=== PATIENT | male | born 1970 | race Caucasian/White ===

== ENCOUNTER 2025-03-17 11:05 | Outpatient (CLI) | payer OTHER, SELFPAY ==
--- NOTE | 2025-03-17 11:18 | ECG_ITS ---
Test Date: 2025-03-17 11:40:29 Measurements Intervals [place] Rate: 74 P: 61 UT: 160 QRS: -34 QRSD: 100 T: 44 QT: 366 QTc: 408 Interpretive Statements SINUS RHYTHM LEFT AXIS DEVIATION BORDERLINE ECG No previous ECG available for comparison Electronically Signed On 03-17-2025 11:43:04 BUSINESS ECONOMIST by Jorge Luis Amato D.O.
[2025-03-17 12:10] LABS: Anion Gap 9 mmol/L (4-12); Blood Urea Nitrogen 16 mg/dL (9-20); Carbon Dioxide 24 mmol/L (22-30); Chloride 100 mmol/L (98-107); Estimated Glomerular Filt Rate > 60; Potassium 4.0 mmol/L (3.4-5.0); Sodium 133 mmol/L (137-145)
[2025-03-17 12:11] LABS: Calcium 8.6 mg/dL (8.4-10.2); Glucose 276 mg/dL (65-110)
== END 2025-03-17 11:06 | disposition home or self-care (01) ==
PROVIDERS: Visit Provider Anesthesiology
DX: Z01.818 Encounter for other preprocedural examination (principal); I10 Essential (primary) hypertension; E78.5 Hyperlipidemia, unspecified; E11.9 Type 2 diabetes mellitus without complications; Z87.891 Personal history of nicotine dependence
CPT/HCPCS: 36415; 80048; 93005

== ENCOUNTER 2025-03-27 07:59 | Day surgery (SDC) | payer OTHER, SELFPAY ==
[2025-02-20 15:07] VITALS: BMI 35.6
[2025-03-13 12:39] VITALS: BMI 34.2
--- NOTE | 2025-03-27 06:59 | P.OP_ITS ---
Procedure Note - Detailed Date of Procedure 03/27/25 Pre-op Diagnosis Digital Mucous Cyst of left middle finger Post-op Diagnosis Same Procedure Performed left middle finger mucous cyst excision and local tissue transfer Surgeon Joelle Barillas MD Computer Aided Design Operator mal wolf pa-c Anesthesia MAC Description of Procedure INFORMED CONSENT: The patient was seen and examined and marked in the pre-op area.? The patient signed the consent form. PROCEDURE IN DETAIL:The patient taken back to OR on the stretcher in supine position. Time out performed with anesthesia, surgeon and staff agreeing on patient's name site and surgery to be performed SCDs were placed on the lower extremities and inflated. A tourniquet was placed on {left} upper extremity and antibiotics given IV After anesthesia administered sedation I injected {3}cc 1%lido and 0.5% marcaine plain for digital block in the palm The?{left upper extremity}?was prepped and draped in sterile fashion the??{left upper extremity} was? exsanguinated with Esmarch bandage and tourniquet inflated to 250mmHg I proceeded with making a wedge excision of the affected tissue at the proximal nail fold of the left middle finger through skin and dermis with 15 blade scalpel extending this incision proximally to the D IP joint. I elevated skin flaps with 15 blade scalpel. I proceeded with circumferential dissection around the cystic appearing mass excising it back to where it seemed to originate at distal insertion of extensor tendon. I irrigated with normal saline. No appreciable osteophyte was noted. I was unable to close the proximal nail fold defect primarily even with this wide undermining so I extended my incision pr oximally to create a rotation advancement flap. This was elevated above extensor tendon and I was now able to rotate this into position and reconstruct the proximal nail fold with minimal tension. This was closed with 5 0 and 4-0 chromic suture. A dressing of xeroform, 4x4, nadia, and tube gauze was applied after the tourniquet was let down noting the hand was warm and well perfused. The patient was then awaken from anesthesia and transferred to the recovery room in stable condition.? Complications - none EBL- 0cc Disposition - home in stable condition Mal Wolf PA-C was essential for positioning, retraction, closure and dressing placement. [facility] Billing Surgery - Charge Forward: Surgery Billing ([phone] same for mal adding )
--- NOTE | 2025-03-27 06:59 | WPDHPUPDATE1 ---
History and Physical Update Update Date/Time: 03/27/25 06:59 Patient seen and examined in pre-operative holding area. No interval change in medical history or symptoms. Patient recalls previous discussion of benefits and alternatives to procedure. Continues to desire to proceed with left middle finger mucous cyst excision . Reviewed procedure, post-op expectations and risks including but not limited to bleeding, infection, injury to tendon/nerve/vessel, decreased hand function, stiffness, RSD, no change or worsening of symptoms, recurrence. I discussed the possible use of assistants and their participation in the case. Patient stated understanding and signed the consent form wishing to proceed.
--- OUTSIDE RECORDS SUMMARY | 2025-03-27 08:41 | XMS_ITS | Clinical Summary ---
Author Organization [facility] Address [address] [place] [id number] Care Team Providers Care Kosher Dietary Service Supervisor Name Role Phone Provider, Unknown Primary Care Provider Unavaila Harjeet Bay DO Unavailable [phone] Leo Biggs MD Unavailable [phone] Allergies Active Allergy Reactions Criticality Noted Date Comments Lactose Other (see Comments) High 08/14/2020 Medications atorvastatin (LIPITOR) 20 MG Tablet 3 Active HumaLOG 100 UNIT/ML Solution 3 Active ondansetron (ZOFRAN) 4 MG Tablet TAKE 1 TABLET BY MOUTH EVERY 8 HOURS NEEDED FOR NAUSEA OR VOMITING 3 Active Cholecalcifero l (Vitamin D3) 125 MCG (5000 UT) Capsule Take 125 mcg by mouth. Active Cinnamon 500 MG Tablet Take 5,000 mg by mouth. Active Lantus SoloStar 100 UNIT/ML Solution Pen-injector ADMINISTER 10 UNITS UNDER THE SKIN EVERY DAY AT BEDTIME 3 Active Blood Glucose Monitoring Suppl (Contour Next EZ) w/Device Kit Use as directed 4 Active losartan (COZAAR) 25 MG Tablet take 1 tablet orally daily Active albuterol 108 (90 Base) MCG/ACT Aerosol Solution inhale 2 puffs by mouth every 4 hours as needed for wheezing or shortness of breath Active metFORMIN (GLUCOPHAGE-XR ) 500 MG TABLET SR 24 HR Take by mouth 2 times daily. 4 Active fexofenadine (MARIA FERNANDA) 180 MG Tablet Take 180 mg by mouth. Active omeprazole (PriLOSEC) 20 MG CAPSULE DELAYED RELEASE Take 20 mg by mouth daily. 4 Active Mounjaro 10 MG/0.5ML Solution Auto-injector 10 mg by Subcutaneous route once a week. 5 Active Farxiga 5 MG Tablet Take 5 mg by mouth daily. 5 Active Contour Next Test Strip USE 1 STRIP TO TEST BLOOD SUGAR TWICE DAILY 5 Active dicyclomine (BENTYL) 20 MG Tablet Take 20 mg by mouth. Discontin ued(Med List Clean Up) rifAXIMin (XIFAXAN) 550 MG Tablet Take 550 mg by mouth. Discontin ued(Med List Clean Up) Active Problems No known active problems Encounters Date Type Department Care Team Description 03/25/2025 11:00 AM LIMNOLOGY TEACHER Office Visit [facility] [address] [phone] Sherry Sierra, BODY AND FRAME MAN, MEAT COUNTER WORKER Leukocytosis, unspecified type (Primary Dx) 03/25/2025 10:45 AM LIMNOLOGY TEACHER Lab [facility] [address] [phone] Lab, [facility] [place] Leukocytosis, unspecified type 03/25/2025 Travel from Last 3 Months Social History Tobacco Use Types Packs/Day Years Used Date Smoking Tobacco: Former Cigarettes Smokeless Tobacco: Never Tobacco Cessation:Counseling Given: Not Answered Sex and Gender Information Value Date Recorded Sex Assigned at Not on file Legal Sex Male 12:49 PM LIMNOLOGY TEACHER Gender Identity Not on file Sexual Orientation Not on file Last Filed Vital Signs Vital Sign Reading Time Taken Comments Blood Pressure 138/84 03/25/2025 11:37 AM LIMNOLOGY TEACHER Pulse 80 03/25/2025 11:37 AM LIMNOLOGY TEACHER Temperature 36.7 C (98 F) 03/25/2025 11:37 AM LIMNOLOGY TEACHER Respiratory Rate 16 03/25/2025 11:3 7 AM LIMNOLOGY TEACHER Oxygen Saturation 95% 03/25/2025 11: 37 AM LIMNOLOGY TEACHER Inhaled Oxygen Concentration - - Weight 117.2 kg (258 lb 6.4 oz) 11:37 AM LIMNOLOGY TEACHER Height 182.9 cm (6') 03/25/2025 11:37 AM LIMNOLOGY TEACHER Body Mass Index 35.05 03/25/2025 11:37 AM LIMNOLOGY TEACHER Plan of Treatment Upcoming Encounters Date Type Department Care Team (Late st Contact Info) Description 09/23/2025 11:40 AM CDT Lab [facility] [address] [phone] Lab, [facility] 09/23/2025 11:45 AM CDT Office Visit [facility] [address] [phone] Harjeet Jj, [address] [place] [phone] Health Maintenance Due Date Last Done Comments Hepatitis C Virus (HCV) Screening 1970 Hepatitis B Immunization (2 of 3 - 19+ 3-dose series) 02/07/2013 01/10/2013 Cologuard 02/15/2017 Immunochemical Fecal Occult Blood 02/15/2017 Respiratory Syncytial Virus (RSV) Immunization (Adult) (1 - Risk 50-74 years 1-dose series) 02/15/2022 Pneumococcal Immunization (50+ years) (3 of 3 - PCV20 or PCV21) 05/25/2023 05/25/2018, 03/28/2016 SARS-COV-2 Immunization ( - season) 2024 03/02/2021, 06/22/2020, 06/01/2020 Colonoscopy 06/01/2031 06/01/2021 Colorectal Cancer Screening 06/01/2031 DTaP/Tdap/Td Immunization Discontinued 10/31/2012 TdaP Immunization Completed 10/31/2012 Pneumococcal Immunization Combined Discontinued 05/25/2018, 03/28/2016 Zoster Immunization Completed 01/30/2023, Influenza Immunization Completed , 01/02/2023, 02/22/2022, Additional history exists Human Papillomavirus (HPV) Immunization (No Doses Required) Completed Meningococcal Immunization (ACWY) Aged Out No longer eligible based on patient's age to complete this topic Rotavirus Immunization Aged Out No lo nger eligible based on patient's age to complete this topic Procedures Procedure Name Priority Date/Time Associated Diagnosis Comments CBC WITH AUTO DIFF OH Routine 03/25/2025 11:17 AM LIMNOLOGY TEACHER LACTATE DEHYDROGENASE (LD) Routine 03/25/2025 11:17 AM LIMNOLOGY TEACHER Leukocytosis, unspecified type from Last 3 Months Results * (ABNORMAL) CBC WITH AUTO DIFF OH (03/25/2025 11:17 AM LIMNOLOGY TEACHER) WBC 12.6(H) 4.0 - 10.0 10*3/uL [facility] HGB 16.0 13.7 - 17.5 g/dL [facility] HCT 46.9 40.1 - 51.0 % [facility] PLT 269 163 - 369 10*3/uL [facility] MPV 9.5 9.4 - 12.4 fL [facility] RBC 5.24 4.63 - 6.08 10*6/uL [facility] MCV 90 79 - 95 fL [facility] MCH 30.5 25.6 - 32.2 pg [facility] MCHC 34.1 32.2 - 36.5 g/dL [facility] RDW 12.0 11.6 - 14.4 % [facility] Neutrophils % 59.4 36.0 - 66.0 % [facility] Lymphocytes % 30.1 19.0 - 40.0 % [facility] Monocytes % 7.6 4.1 - 12.1 % [facility] Eosinophils % 2.0 0.0 - 3.5 % [facility] Basophils % 0.6 0.0 - 1.0 % [facility] Absolute Neutrophils 7.5(H) 1.4 - 6.6 10*3/uL [facility] Absolute Lymphocytes 3.8 0.8 - 4.0 10*3/uL [facility] Absolute Monocytes 1.0 0.2 - 1.2 10*3/uL [facility] Absolute Eosinophils 0.3 0.0 - 0.4 10*3/uL [facility] Absolute Basophils 0.1 0.0 - 0.1 10*3/uL [facility] 03/25/2025 11:1 7 AM LIMNOLOGY TEACHER Kate Lou APRN, MAGDALENE LAB SEND OUTS Final Result Performing Organization Address [facility]/State/ZIP Co de Phone Number [facility] [address] [place] [address], [place] [phone] * (ABNORMAL) LACTATE DEHYDROGENASE (LD) (03/25/2025 11:17 AM LIMNOLOGY TEACHER) LDH 113(L) 140 - 271 U/L [facility] Blood 03/25/2025 11:1 7 AM LIMNOLOGY TEACHER Narrative [facility] - 03/25/2025 12:04 PM LIMNOLOGY TEACHER Release to patient->Immediate Kate Lou APRN, MAGDALENE CHEMISTRY ORDERABLES Final Result Performing Organization Address [facility] Co de Phone Number [facility] [address] [place] [address], [place] [phone] from Last 3 Months Insurance [employer] Care Teams Kosher Dietary Service Supervisor Relationship Specialty Start Date End Date Provider, Unknown UNKNOWN PCP - General 03/16/23 Harjeet Jj DO [address] [place] [phone] Consulting Physician Oncology 03/16/23 Leo Biggs MD [address] [address] Internal Medicine 04/19/23
--- OUTSIDE RECORDS SUMMARY | 2025-03-27 08:41 | XMS_ITS | Encounter Summary ---
Author Organization [facility] Address [address] [place] [address] Care Team Providers Care Chain Maker Name Role Phone Ha Moffett MD Primary Care Provider [phone] Encounter Details Date Type Department Care Team (Late st Contact Info) Description 08/09/2019 Telephone [facility] [address] [place] [address] Venu Morocho MD [address] OF PLASTIC SURGERY [place], [place] [phone] Social History Tobacco Use Types Packs/Day Years Used Date Smoking Tobacco: Former Smokeless Tobacco: Never Alcohol Use Standard Drinks/Week Comments Yes 0 (1 standard drink = 0.6 oz pur e alcohol) Sex and Gender Information Value Date Recorded Sex Assigned at Not on file Legal Sex Male 6:17 PM METHODS SPECIALIST Gender Identity Not on file Sexual Orientation Not on file documented as of this encounter Miscellaneous Notes * Telephone Encounter - Coty Cherry - 08/09/2019 11:43 AM CDT Per [facility] [employer], cpt codes: 95298, 50402, 73491, 98115, and 19315 do not require prior authorization. Call reference# not given. Patient is scheduled for this procedure with Dr. Morocho on 09/16/19.Coty Rivera [phone] documented in this encounter Plan of Treatment Not on file documented as of this encounter Visit Diagnoses Not on filedocumented in this encounter Care Teams Chain Maker Relationship Specialty Start Date End Date Ha Moffett MD PCP - General 11/26/09 documented as of this encounter
--- OUTSIDE RECORDS SUMMARY | 2025-03-27 08:41 | XMS_ITS | Clinical Summary ---
Author Organization [facility] Address [address] [place] [address] Care Team Providers Care Professional Sports Scout Name Role Phone Ha Moffett MD Primary Care Provider [phone] Source Comments [facility],non-owned Affiliates and Associated Physician Practices is amultiple site organization consisting of ambulatory clinics and hospital sitesin [place], [place], [place] and [place]. This disclosure is being madepursuant to the Care Everywhere program and may not contain all information available regarding this patient. Last updated 17.[employer] [facility] Allergies Active Allergy Reactions Criticality Noted Date Comments Lactase Diarrhea,Nausea and/or Vomiting Low 11/08 Lactose Nausea and/or Vomiting High 08/14/2020 Medications * Be aware that medications may not be up to date on this document. Alwaysverify current medications with the patient. atorvastatin (LIPITOR) 20 MG tablet TAKE 1 TABLET BY MOUTH EVERY DAY Active lisinopril (PRINIVIL; ZESTRIL) 10 MG tablet TK 1 T PO D 5 9 Active metFORMIN (GLUCOPHAGE) 500 MG tablet 1,000 mg 2 times daily with morning and evening meal Active Multiple Vitamin (MULTI VITAMIN DAILY PO) 1 tab daily Active omeprazole (PRILOSEC) 20 MG capsule TK 1 C PO QD 5 9 Active [id number]-Omeg a 3-Phytosterols (BP VIT 3) 1 MG CAPS 5000 IU daily Active buPROPion XL 24hr (WELLBUTRIN-XL ) 150 MG tablet Take 1 tablet by mouth once daily 0 Active insulin aspart (NOVOLOG) vial Inject subcutaneously daily before dinner Active gabapentin (NEURONTIN) 300 MG capsule Take 1 capsule by mouth 3 times daily 50 capsule 4 0 Active Additional Information Patient not taking.Reported on 12/17/2019 ibuprofen (MOTRIN) 600 MG tablet Take 1 tablet by mouth 3 times daily 50 tablet 4 0 Active diclofenac sodium (VOLTAREN) 1 % gel Apply 2 g to affected area 4 times daily 2 gm amount for elbow, wrist or hand 4 gm amount for knee, ankle or foot 150 g 1 0 Active Dulaglutide (TRULICITY SC) Activ e oxyCODONE-acet aminophen (PERCOCET) 5-325 MG tablet Take 2 tablets by mouth every 4 hours as needed 30 tablet 0 Active Active Problems Problem Noted Date Diagnosed Date Pain from implanted hardware 03/18/2020 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 03/18/2020 TFCC (triangular fibrocartil age complex) injury, left, sequela 01/17/2020 Ulnar impaction syndrome, left 01/10/2020 Sprain and strain of left wrist 12/21/2018 Left wrist pain 12/21/2018 Left tennis elbow 11/02/2018 Swelling of wrist joint, left 11/02/2018 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 Post-op pain Immunizations Immunization Administration Dates Next Due INFLUENZA VACCINE 03/24/2019 Family History Medical History Relation Name Comments None Known Mother Relation Name Status Comments Father Alive Cancer around T onsils Mother Alive Social History Tobacco Use Types Packs/Day Years Used Date Smoking Tobacco: Former Smokeless Tobacco: Never Tobacco Cessation:Counseling Given: No Alcohol Use Standard Drinks/Week Comments Yes 1 (1 standard drink = 0.6 oz pur e alcohol) Very Rare. AUDIT-C Answer Date Recorded Q1: How often do you have a drink containing alc ohol? Monthly or less 01/10/2020 Average Number of Drinks Not on file 020 Frequency of Binge Drinking Not on file 05/2019 Sex and Gender Information Value Date Recorded Sex Assigned at Not on file Legal Sex Male 6:17 PM STEP DOWN NURSE Gender Identity Not on file Sexual Orientation Not on file Last Filed Vital Signs Vital Sign Reading Time Taken Comments Blood Pressure 155/94 03/19/2020 5:57 PM STEP DOWN NURSE Pulse 88 03/19/2020 5:57 PM STEP DOWN NURSE Temperature 36.5 C (97.7 F) 03/19/2020 5:57 PM STEP DOWN NURSE Respiratory Rate 20 03/19/2020 5:57 PM STEP DOWN NURSE Oxygen Saturation 98% 03/19/2020 5:57 PM STEP DOWN NURSE Inhaled Oxygen Concentration - - Weight 117 kg (258 lb) 09/25/2020 12:52 PM CDT Height 182.9 cm (6') 06/12/2020 11:05 AM STEP DOWN NURSE Body Mass Index 34.99 06/12/2020 11:05 AM STEP DOWN NURSE Plan of Treatment Health Maintenance Due Date Last Done Comments COLOGUARD (AGES 45-75) - COLON CA SCREENING 1970 COLON MONITORING 1970 COLONOSCOPY - COLON CA SCREENING 1972 CT COLONOGRAPHY - COLON CA SCREENING 1970 Colorectal Cancer Screening 1970 FIT - COLON CA SCREENING 1970 FLEX SIG - COLON CA SCREENING 1970 HIV SCREENING 02/15/1987 HEPATITIS C SCREENING 02/11/1990 DTAP/TDAP/TD VACCINES (1 - Tdap) 02/15/1991 HEPATITIS B VACCINE (1 of 3 - 19+ 3-dose series) 02/15/1991 PNEUMOCOCCAL VACCINE 50+ (1 of 1 - PCV) 02/15/2022 ZOSTER VACCINE (1 of 2) 02/15/2022 SCREENING FOR DIABETES 03/18/2023 0, 03/18/2020, 03/16/2020, Additional history exists DEPRESSION SCREENING 04/10/2024 COVID-19 VACCINE (1 - season) 2024 INFLUENZA VACCINE (#1) 2024 9, 01/14/2017, 03/28/2016, Additional history exists HIB VACCINE Aged Out No longer eligi ble based on patient's age to complete this topic HPV VACCINE Aged Out No longer eligi ble based on patient's age to complete this topic MENINGOCOCCAL (Group B) VACCINE SHARED DECISION-MAKING Aged Out No longer eligible based on patient's age to complete this topic MENINGOCOCCAL GROUPS A/C/Y/W VACCINE Aged Out No longer eligible based on patient's age to complete this topic Goals Goal Patient Goal Type Associated Problems Recent Progress Patient-Stated? Author Mobility General Improving(09/08 12:53 PM CDT) No Chery Snyder RN Note: Expected end date: 04/09/2020 The goal is to maintain or improve your mobility at the optimum level for you. Interventions: Medical Devices Implanted Type Area Hvac Lead Device Identifier Shelf Expiration Date Model / Serial / Lot [place] Sut Pushlock 2.5mm Peek 8mm Mini Implanted:Qty: 1 on 09/16/2019 by Venu Morocho MD at [facility] [employer] 07/08/2024 [id number] / / [id number] Washer Implanted:Qty: 1 on 03/18/2020 by Zbigniew Grover MD at [facility] Left: Arm Acumed [id number] / / Screw Partially Threaded Cannulated Implanted:Qty: 1 on 03/18/2020 by Zbigniew Grover MD at [facility] Left: Arm [id number] / / Screw 4-4.1mm 34mm Std Ft Slf Cut Palma Implanted:Qty: 1 on 03/18/2020 by Zbigniew Grover MD at [facility] Left: Arm Acumed 06/09/2026 [id number] / / [id number] Explanted Type Area Hvac Lead Device Identifier Shelf Expiration Date Model / Serial / Lot Partially Threaded Cannulated Screw Explanted:Qty: 1 on 03/18/2020 at [facility] Left: Arm [id number] / / Procedures Procedure Name Priority Date/Time Associated Diagnosis Comments GLUCOSE - POINT OF CARE Routine 03/18/2020 10:58 AM STEP DOWN NURSE from Last 3 Months or Most Recently Relevant to Health Maintenance Results * (ABNORMAL) GLUCOSE - POINT OF CARE (03/18/2020 10:58 AM STEP DOWN NURSE) Glucose WB/POC 119(H) 70 - 115 mg/dL 03/18/2020 12:56 PM STEP DOWN NURSE [facility] Specimen Type Venous 03/18/2020 12:56 PM STEP DOWN NURSE [facility] Blood BLOOD SPECIMEN / Unknown 03/18/2020 10:58 AM STEP DOWN NURSE 03/18/2020 12:56 PM STEP DOWN NURSE Zbigniew Grover MD LAB - POINT OF CARE ORDERABLES F inal Result [facility] [address] [place] [address], [facility] [phone] from Last 3 Months or Most Recently Relevant to Health Maintenance Insurance ANTHEM ANTHEM Care Teams Professional Sports Scout Relationship Specialty Start Date End Date Ha Moffett MD PCP - General 11/26/09
--- OUTSIDE RECORDS SUMMARY | 2025-03-27 08:41 | XMS_ITS | Clinical Summary ---
Author Organization [facility] Main [facility] s Address [address] [place] [address] Care Team Providers Care Hall Tender Name Role Phone Trini Dickey Primary Care Provider Allergies Active Allergy Reactions Criticality Noted Date Comments Lactose Diarrhea Low 02/13/2024 Medications tirzepatide (Mounjaro) 5 mg/0.5 mL pen injector Inject 5 mg under the skin every 7 days Active insulin lispro (HUMALOG KWIKPEN INSULIN SUBQ) Inject under the skin Active insulin glargine 100 unit/mL vial for injection Inject 30 Units under the skin daily as needed Active metFORMIN (FORTAMET) 500 mg 24 hr tablet Take 1 tablet (500 mg total) by mouth daily with breakfast Active ondansetron (ZOFRAN) 4 mg tablet Take 1 tablet (4 mg total) by mouth every 8 (eight) hours as needed 3 Active losartan (COZAAR) 25 mg tablet Take 1 tablet (25 mg total) by mouth daily 4 Active traMADoL (ULTRAM) 50 mg tablet Take 1 tablet (50 mg total) by mouth every 6 (six) hours as needed 3 Active omeprazole 20 mg tablet,delayed release (DR/EC) Take by mouth Active fexofenadine (MARIA FERNANDA) 180 mg tablet Take 1 tablet (180 mg total) by mouth daily Active naproxen-diphen hydramine 220-25 mg tablet Take by mouth Active cinnamon bark extract 500 mg tablet Take 5,000 mg by mouth Active multivitamin tablet Take 1 tablet by mouth daily Active albuterol HFA (Ventolin HFA) 90 mcg/actuation inhaler Inhale 2 puffs every 4 (four) hours as needed for wheezing or shortness of breath 18 g 5 Active Active Problems Problem Noted Date Diagnosed Date Cigarette nicotine dependence in remission 10/30 Psychophysiological insomnia 10/30/2024 BMI 34.0-34.9,adult 10/30/2024 BEE (obstructive sleep apnea) 10/30/2024 Snoring 10/30/2024 Delayed sleep phase syndrome 10/30/2024 SOB (shortness of breath) 03/26/2024 Leucocytosis 10/23/2017 Encounters Date Type Department Care Team Description 03/13/2025 Telephone [facility] [address] [place] [address] Ally Altamirano, [facility] 03/11/2025 7:59 PM CHEMICAL MANAGER - 03/11/2025 11:59 PM CHEMICAL MANAGER Hospital Encounter [facility] [address] [place] [address] BEE (obstructive sleep apnea) Discharge Disposition: Discharge to home or self care 02/04/2025 Telephone [facility] Pulmonary [address] [address] Ashutosh Roland MD from Last 3 Months Medical History Medical History Date Comments Diabetes mellitus Social History Tobacco Use Types Packs/Day Years Used Date Smoking Tobacco: Former Cigarettes 0.5 24 S tarted: 02/15/1995 Smokeless Tobacco: Never Tobacco Cessation:Counseling Given: Not Answered Sex and Gender Information Value Date Recorded Sex Assigned at Not on file Legal Sex Male 6:25 AM CHEMICAL MANAGER Gender Identity Not on file Sexual Orientation Not on file Last Filed Vital Signs Vital Sign Reading Time Taken Comments Blood Pressure 128/78 10/30/2024 11:40 AM CDT Pulse 72 10/30/2024 11:40 AM CDT Temperature 36.4 C (97.6 F) 10/30/2024 11:40 AM CDT Respiratory Rate 18 10/30/2024 11:4 0 AM CDT Oxygen Saturation 97% 10/30/2024 11: 40 AM CDT Inhaled Oxygen Concentration - - Weight 115.5 kg (254 lb 11.2 oz) 2024 11:40 AM CDT Height 182.9 cm (6' 0.01) 10/30/2024 1 1:40 AM CDT Body Mass Index 34.54 10/30/2024 11:40 AM CDT Plan of Treatment Health Maintenance Due Date Last Done Comments Colon Cancer Screening-Colonoscopy 1972 Depression Screening 1972 Hepatitis C Screening 1972 Prostate Cancer Screening-PSA 1972 Regular Well Visit/Exam 18-64 02/15/1990 Zoster Vaccine (1 of 2) 02/15/2022 DTaP/Tdap/Td Vaccine (2 - Td or Tdap) 10/31/2022 10/31/2012 Influenza Vaccine (#1) 2024 0, 05/01/2019, 03/24/2019, Additional history exists Hepatitis B Screening Completed 01/10/2013 Pneumococcal vaccine <65 Aged Out 05/25/2018, 03/10 No longer eligible based on patient's age to complete this topic Procedures Procedure Name Priority Date/Time Associated Diagnosis Comments PSG (COMPLEX) Routine 03/12/2025 4:18 PM CHEMICAL MANAGER BEE (obstructive sleep apnea) from Last 3 Months Results * PSG-Sleep Provider Use Only (03/12/2025 4:18 PM CHEMICAL MANAGER) us Farhana Lynn NP SLEEP [facility]ENTER ORDERABLES Fin al Result Performing Organization Address City/State/[facility] Co de Phone Number [facility] SLEEP MEDICINE [address] [place] [address] from Last 3 Months Insurance [employer] SIG [id number] BL CHOICE [place]F [place] Advance Directives For more information, please contact: [phone] Documents on File Type Date Recorded Patient Mushroom Laborer Expl anation ADVANCE DIRECTIVE 03/09/2017 12:00 AM POW ER OF WINDOWS DEPLOYMENT TECHNICIAN FINANCIAL/MEDICAL Care Teams Hall Tender Relationship Specialty Start Date End Date Trini Dickey PA [address] [place] [address] PCP - General Family Practice 10/31/24
--- OUTSIDE RECORDS SUMMARY | 2025-03-27 08:41 | XMS_ITS | Patient Health Record ---
Author Organization [facility] Address [address] [place], [place] [id number] Care Team Providers Care Knurling Machine Operator Name Role Phone RohithSHAHID armendariz Unavailable [phone] Ha Moffett Unavailable Unavailable Reason For Referral No Information Social History Social History Additional Details Category Social Info Options Details Migrated Social History Migrated Social History Alcohol intake : , Smoking Status : Never smoked , History of tobacco use : Plan Of Treatment No Information Insurance Providers Payer Name Payer Address Payer Phone Subscriber Number Group Number Insured Name Patient Relationship to Insured Coverage Start Date Coverage End Date [facility] [address] [address] [place] [id number] ROBERT ANAYA Self - patient is the insured
--- OUTSIDE RECORDS SUMMARY | 2025-03-27 08:42 | XMS_ITS | Patient Health Record ---
Author Organization [facility] Address [address] [place] [address] Care Team Providers Care New Order Clerk Name Role Phone Trini Dickey Primary Care Provider Elijaha aure MccoyaWenceslaoie Unavailable [phone] Allergies Allergen (clinical drug ingredient) Drug/Non Drug Allergy documented on EMR Reaction Allergy Type Onset Date Status lactose intolerance (uncoded) Unknown Allergy Active Reason For Referral No Information Medications Medication SIG (Take, Route, Frequency, Duration) Notes Start Date End Date Status Melissa Active Aspirin EC Adult Low Strength Active Multi Vitamin Active Cinnamon Active Lisinopril Active Vitamin D Active Insulin Aspart Activ e metFORMIN HCl Active Gabapentin Active Ibuprofen Active Trulicity Active Omeprazole Active HumaLOG Not-Taking /PRN Wellbutrin Active Social History Tobacco Use: Social History Observation Description Date Details (start date - stop date) Current Smoker NA - NA Social History Tobacco Use: Social Info Question Answer Notes Tobacco Use/Smoking Are you a current smoker How many cigarettes a day do you smoke? 6-10 Additional Details Category Social Info Options Details Miscellaneous: Exercise: Moderate Occupation: Works full-time Living with: alone Drugs/Alcohol: Do you smoke marijuana? De nies Alcohol use: Social alcohol u se Recreational drugs Patient denie s recreational drug use Problems Problem Type SNOMED Code ICD Code Onset Dates Problem Status W/U Status Risk Notes Problem Neurologic disorder associated with type II diabetes mellitus (967560712) Type 2 diabetes mellitus with other diabetic neurological complication (E11.49) Active confirmed Plan Of Treatment No Information Medical (General) History Medical History History ICD Code Diabetes, Asthma, Seizures Surgical History Surgery Date(Month/Year) left arm surgery
[2025-03-27 09:00] VITALS: BP 130/72; PULSE 78; RESP 18; TEMP 37; O2SAT 96
[2025-03-27] MEDS: LACTATED RINGERS 1,000 ML 30 ML IV CONT (09:10)
[2025-03-27] MEDS: ACETAMINOPHEN 500 MG TABLET 1000 MG PO (09:17)
[2025-03-27] MEDS: LIDOCAINE 1% LOCAL INJ 20 ML VIAL ×2 (10:26)
[2025-03-27] MEDS: BUPivacaine HCL 0.5% 10 ML AMP ×2 (10:27)
[2025-03-27] MEDS: ceFAZolin SODIUM 2 GM/20 ML SW SYRINGE IV PUSH (10:30)
--- NOTE | 2025-03-27 10:43 | WPDANESEPPF ---
Anes - Initial Pre Proc Eval Procedure: Operation Date: 03/27/25 10:15 Proposed Procedures p Excision Mucous Cyst Left Middle Finger - Joelle Barillas MD Date/Time: 03/27/25 10:43 Surgeon: Joelle Barillas MD Pre Op Diagnosis: Digital Mucous Cyst of Finger Left Hand Patient Data Age: 55 Gender: M Height: 1.8 m Weight: 116.55 kg Last Vital Signs Temp 98.6 F 03/27/25 09:00 Pulse 78 03/27/25 09:00 Resp 18 03/27/25 09:00 BP 130/72 03/27/25 09:00 Pulse Ox 96 03/27/25 09:00 O2 Del Method Room Air 03/27/25 09:00 Allergies Allergy/AdvReac Type Severity Reaction Status Date / Time No Known Allergies Allergy Verified 03/27/25 09:14 Home Medications ?Medication ?Instructions ?Recorded ?Confirmed ?Type albuterol sulfate 90 mcg/actuation 2 - 4 puff inhalation ONCE PRN 02/17/25 03/27/25 History aerosol inhaler (Ventolin HFA) shortness of breath or wheezing insulin glargine 100 unit/mL (3 35 unit subcut DAILY 02/17/25 03/27/25 History mL) subcutaneous pen (Lantus Solostar U-100 Insulin) insulin lispro 100 unit/mL 1 sliding scale dose subcut 02/17/25 03/27/25 History subcutaneous pen (Humalog KwikPen USEASDIRECTD (U-100) Insulin) losartan 25 mg tablet 25 mg PO DAILY 02/17/25 03/27/25 History metformin 1,000 mg tablet 1,000 mg PO BID 02/17/25 03/27/25 History omeprazole 40 mg capsule,delayed 40 mg PO DAILY 02/17/25 03/27/25 History release ondansetron 4 mg disintegrating 4 mg PO Q6H PRN nausea and vomiting 02/17/25 03/27/25 History tablet tirzepatide 10 mg/0.5 mL 10 mg subcut WEEKLY 02/17/25 03/27/25 History subcutaneous pen injector (Carole) tramadol 50 mg tablet 50 mg PO Q6H PRN pain 02/17/25 03/27/25 History atorvastatin 20 mg tablet 20 mg PO DAILY 03/13/25 03/27/25 History Laboratory Tests 03/27/25 09:21 POC Capillary Glucose 151 H mg/dl (65-105) Patient hx anesthesia problems: none Family hx anesthesia problems: none Results Review: All pre-operative results and documents have been reviewed as part of the pre-operative evaluation. [facility] Past Medical History Medical History (Updated 02/17/25 @ 16:27 by Silvana Gallegos PA-C) Hypertension GERD (gastroesophageal reflux disease) Seizures Diabetes Asthma Family History Family History (Updated 02/17/25 @ 16:13 by Celia Garner) Father Alcoholism A-fib Mother Thyroid disorder Sibling Asthma Thyroid disorder Grandparent Lung cancer Thyroid disorder Social History Social History Social History: Caffeine-soda Smoking status: Former smoker Tobacco type: cigarettes Second hand tobacco smoke exposure: Yes Smoking end date: 04/10/17 Alcohol intake: current Alcohol use details: rarely Substance use: never Substance use type: does not use Living arrangements: alone Spiritual care concerns: No Anes - Eval Final PreProcedure Day of Procedure 03/27/25 10:43 Heart: regular rate and rhythm Lungs: clear to auscultation Airway: Mallampati scale class IV Neurological: alert and oriented Last oral intake: >/= 8 hours ASA classification: III Anesthetic plan: proceed Anesthesia type and monitoring: general Results Review: All pre-operative results and documents have been reviewed as part of the pre-operative evaluation. Informed Consent: The patient's anesthetic plan and its attendant risks and benefits were discussed with the patient/family/POA. Questions were solicited and answers provided to the satisfaction of the patient/family/POA.
[2025-03-27 10:57] VITALS: BP 100/70; PULSE 79; RESP 18; O2SAT 95
[2025-03-27 11:25] VITALS: BP 116/72; PULSE 70; RESP 18; O2SAT 98
== END 2025-03-27 11:30 | disposition home or self-care (01) ==
LOC: ASC 08:29
PROVIDERS: Visit Provider Plastic Surgery
PROC: (CPT 26160; principal; 2025-03-27 10:15)
DX: M67.442 Ganglion, left hand (principal)
CPT/HCPCS: 26160; 14040

== ENCOUNTER 2025-03-27 08:12 | Outpatient (NON) | payer OTHER, SELFPAY ==
--- NOTE | 2025-03-27 | S_PTH ---
PATIENT: David Hernandez LOC: [facility] U#:[id number] AGE/SX: 55/M ROOM: RE03/27/[address]: Joelle Barillas MD : 1970 BED: DIS: 03/27/2025 SPEC #: [id number] RECD: 03/28/25 08:46 STATUS: JADE REQ #: [id number] CINDY: 03/27/25 00:[address]: Joelle Barillas DEPT: [facility] Surgical RECD BY: Paty Abdalla ENTERED: 03/28/25 08:46 SP TYPE: Surgical OTHR DR: UNKNOWN,DOCTOR Tissues: A - Cyst Procedures: Hematoxylin and Eosin Stain Gross and Microscopic Level 4
--- OUTSIDE RECORDS SUMMARY | 2025-03-28 08:17 | XMS_ITS | Clinical Summary ---
Author Organization [facility] Address [address] [place] [address] Care Team Providers Care Railway Head Tender Name Role Phone Ha Moffett MD Primary Care Provider [phone] Source Comments [facility],non-owned Affiliates and Associated Physician Practices is amultiple site organization consisting of ambulatory clinics and hospital sitesin [place], [place], [place] and [place]. This disclosure is being madepursuant to the Care Everywhere program and may not contain all information available regarding this patient. Last updated 17.[facility] Allergies Active Allergy Reactions Criticality Noted Date [...] 1 C PO QD 5 9 Active [id number] a 3-Phytosterols (BP VIT 3) 1 MG [...] on file Legal Sex Male 6:17 PM LINE APPLIANCE ASSEMBLER Gender Identity Not on file Sexual Orientation Not on file Last Filed Vital Signs Vital Sign Reading Time Taken Comments Blood Pressure 155/94 03/19/2020 5:57 PM LINE APPLIANCE ASSEMBLER Pulse 88 03/19/2020 5:57 PM LINE APPLIANCE ASSEMBLER Temperature 36.5 C (97.7 F) 03/19/2020 5:57 PM LINE APPLIANCE ASSEMBLER Respiratory Rate 20 03/19/2020 5:57 PM LINE APPLIANCE ASSEMBLER Oxygen Saturation 98% 03/19/2020 5:57 PM LINE APPLIANCE ASSEMBLER Inhaled Oxygen Concentration - - Weight 117 kg (258 lb) 09/25/2020 12:52 PM CDT Height 182.9 cm (6') 06/12/2020 11:05 AM LINE APPLIANCE ASSEMBLER Body Mass Index 34.99 06/12/2020 11:05 AM LINE APPLIANCE ASSEMBLER Plan of Treatment Health Maintenance Due Date [...] you. Interventions: Medical Devices Implanted Type Area Fraud Representative Device Identifier Shelf Expiration Date Model / Serial / Lot [place] Sut Pushlock 2.5mm Peek 8mm Mini Implanted:Qty: 1 on 09/16/2019 by Venu Morocho MD at [facility] [employer] 07/08/2024 [id number] / / [id number] Washer Implanted:Qty: 1 on 03/18/2020 by Zbigniew Grover MD at [facility] Left: Arm Acumed [id number] / / Screw Partially Threaded Cannulated Implanted:Qty: 1 on 03/18/2020 by Zbigniew Grover MD at [facility] Left: Arm [id number] / / Screw 4-4.1mm 34mm Std Ft Slf Cut Palma Implanted:Qty: 1 on 03/18/2020 by Zbigniew Grover MD at [facility] Left: Arm [employer]umed 06/09/2026 [id number] / / [id number] Explanted Type Area Fraud Representative Device Identifier Shelf Expiration Date Model / Serial / Lot Partially Threaded Cannulated Screw Explanted:Qty: 1 on 03/18/2020 at [facility] Left: Arm [id number] / / Procedures Procedure Name Priority Date/Time Associated Diagnosis Comments GLUCOSE - POINT OF CARE Routine 03/18/2020 10:58 AM LINE APPLIANCE ASSEMBLER from Last 3 Months or Most Recently Relevant to Health Maintenance Results * (ABNORMAL) GLUCOSE - POINT OF CARE (03/18/2020 10:58 AM LINE APPLIANCE ASSEMBLER) Glucose WB/POC 119(H) 70 - 115 mg/dL 03/18/2020 12:56 PM LINE APPLIANCE ASSEMBLER [facility] Specimen Type Venous 03/18/2020 12:56 PM LINE APPLIANCE ASSEMBLER [facility] Blood BLOOD SPECIMEN / Unknown 03/18/2020 10:58 AM LINE APPLIANCE ASSEMBLER 03/18/2020 12:56 PM LINE APPLIANCE ASSEMBLER Zbigniew Grover MD LAB - POINT OF CARE ORDERABLES F inal Result [facility] [address] [place] [address], [facility] [phone] from Last 3 Months or Most Recently Relevant to Health Maintenance Insurance ANTHEM ANTHEM Care Teams Railway Head Tender Relationship Specialty Start Date End Date Ha Moffett MD PCP - General 11/26/09
--- OUTSIDE RECORDS SUMMARY | 2025-03-28 08:17 | XMS_ITS | Clinical Summary ---
Author Organization [facility] Address [address] [place] [address] Care Team Providers Care Various Exceptionalities Teacher Name Role Phone Provider, Unknown Primary Care Provider Unavaila Harjeet Bay DO Unavailable [phone] Leo Biggs MD Unavailable [phone] Allergies Active Allergy Reactions Criticality Noted Date [...] Department Care Team Description 03/25/2025 11:00 AM SHOP ESTIMATOR Office Visit [facility] [address] [phone] Sherry Sierra, METAL SPRAYER PROTECTIVE COATING, LATH TIER Leukocytosis, unspecified type (Primary Dx) 03/25/2025 10:45 AM SHOP ESTIMATOR Lab [facility] [address] [phone] Lab, [facility] [place] Leukocytosis, unspecified type 03/25/2025 Travel from Last 3 Months Social History Tobacco Use Types Packs/Day Years Used Date Smoking Tobacco: Former Cigarettes Smokeless Tobacco: Never Tobacco Cessation:Counseling Given: Not Answered Sex and Gender Information Value Date Recorded Sex Assigned at Not on file Legal Sex Male 12:49 PM SHOP ESTIMATOR Gender Identity Not on file Sexual Orientation Not on file Last Filed Vital Signs Vital Sign Reading Time Taken Comments Blood Pressure 138/84 03/25/2025 11:37 AM SHOP ESTIMATOR Pulse 80 03/25/2025 11:37 AM SHOP ESTIMATOR Temperature 36.7 C (98 F) 03/25/2025 11:37 AM SHOP ESTIMATOR Respiratory Rate 16 03/25/2025 11:3 7 AM SHOP ESTIMATOR Oxygen Saturation 95% 03/25/2025 11: 37 AM SHOP ESTIMATOR Inhaled Oxygen Concentration - - Weight 117.2 kg (258 lb 6.4 oz) 11:37 AM SHOP ESTIMATOR Height 182.9 cm (6') 03/25/2025 11:37 AM SHOP ESTIMATOR Body Mass Index 35.05 03/25/2025 11:37 AM SHOP ESTIMATOR Plan of Treatment Upcoming Encounters Date Type Department Care Team (Late st Contact Info) Description 09/23/2025 11:40 AM CDT Lab [facility] [address] [address] Lab, [facility] 09/23/2025 11:45 AM CDT Office Visit [facility] [address] [address] Harjeet Jj, [address] [place] [phone] Health Maintenance Due Date Last Done [...] AUTO DIFF [place] Routine 03/25/2025 11:17 AM SHOP ESTIMATOR LACTATE DEHYDROGENASE (LD) Routine 03/25/2025 11:17 AM SHOP ESTIMATOR Leukocytosis, unspecified type from Last 3 Months Results * (ABNORMAL) CBC WITH AUTO DIFF [place] (03/25/2025 11:17 AM SHOP ESTIMATOR) WBC 12.6(H) 4.0 - 10.0 10*3/uL [facility] SLITTING MACHINE [facility]PER[facility] HGB 16.0 13.7 - 17.5 g/dL [facility] YARN SLITTING MACHINE [facility] HCT 46.9 40.1 - 51.0 % [facility]ALL[facility] YARN SLITTING MACHINE OPER[facility] PLT 269 163 - 369 10*3/uL [facility]ALL[facility] YARN SLITTING MACHINE OPER[facility] MPV 9.5 9.4 - 12.4 fL [facility]ALL[facility] YARN SLITTING MACHINE OPERATOR [facility] RBC 5.24 4.63 - 6.08 10*6/uL [facility] METALL[facility] YARN SLITTING MACHINE OPER[facility] MCV 90 79 - 95 fL [facility] YARN SLITTING MACHINE OPERATOR [facility] MCH 30.5 25.6 - 32.2 pg [facility] METALLIC YARN SLITTING MACHINE OPERATOR [facility] MCHC 34.1 32.2 - 36.5 g/dL [facility] METALLIC YARN SLITTING MACHINE OPERATOR [facility] RDW 12.0 11.6 - 14.4 % [facility] METALLIC YARN SLITTING MACHINE [facility] Neutrophils % 59.4 36.0 - 66.0 % [facility]CER METALLIC YARN SLITTING MACHINE OPER[facility] Lymphocytes % 30.1 19.0 - 40.0 % [facility] METALLIC YARN SLITTING MACHINE [facility]PER[facility] Monocytes % 7.6 4.1 - 12.1 % CANCER METALLIC YARN SLITTING MACHINE OPERATOR [facility] Eosinophils % 2.0 0.0 - 3.5 % CANCER METALLIC YARN SLITTING MACHINE OPERATOR [facility] Basophils % 0.6 0.0 - 1.0 % [facility]CER METALLIC YARN SLITTING MACHINE OPERATOR [facility] Absolute Neutrophils 7.5(H) 1.4 - 6.6 10*3/uL [facility]ER METALLIC YARN SLITTING MACHINE OPERATOR [facility] Absolute Lymphocytes 3.8 0.8 - 4.0 10*3/uL CANCER METALLIC YARN SLITTING MACHINE OPERATOR [facility] Absolute Monocytes 1.0 0.2 - 1.2 10*3/uL [facility]CER METALLIC YARN SLITTING MACHINE OPERATOR [facility] Absolute Eosinophils 0.3 0.0 - 0.4 10*3/uL CANCER METALLIC YARN SLITTING MACHINE OPERATOR [facility] Absolute Basophils 0.1 0.0 - 0.1 10*3/uL [facility] METALLIC YARN SLITTING MACHINE OPER[facility] 03/25/2025 11:1 7 AM SHOP ESTIMATOR Kate Lou APRN, [facility] LAB SEND OUTS Final Result Performing Organization Address [facility]/State/ZIP Co de Phone Number CANCER METALLIC YARN SLITTING MACHINE OPERATOR [facility] [address] [place] [address], [place] [phone] * (ABNORMAL) LACTATE DEHYDROGENASE (LD) (03/25/2025 11:17 AM SHOP ESTIMATOR) LDH 113(L) 140 - 271 U/L CANCER METALLIC YARN SLITTING MACHINE OPER[facility] Blood 03/25/2025 11:1 7 AM SHOP ESTIMATOR Narrative [facility] YARN SLITTING MACHINE [facility] - 03/25/2025 12:04 PM SHOP ESTIMATOR Release to patient->Immediate Kate Lou APRN, MAGDALENE CHEMISTRY ORDERABLES Final Result Performing Organization Address [facility] Co de Phone Number CANCER METALLIC YARN SLITTING MACHINE OPERATOR [facility] [address] [place] [address], [place] [phone] from Last 3 Months Insurance [employer] Care Teams Various Exceptionalities Teacher Relationship Specialty Start Date End Date Provider, Unknown UNKNOWN PCP - General 03/16/23 Harjeet Jj DO [address] [place] [phone] Consulting Physician Oncology 03/16/23 Leo Biggs MD [address] [address] Internal Medicine 04/19/23
--- OUTSIDE RECORDS SUMMARY | 2025-03-28 08:17 | XMS_ITS | Encounter Summary ---
Author Organization [facility] Address [address] [place] [address] Care Team Providers Care Student Support Counselor Name Role Phone Ha Moffett MD Primary Care Provider Encounter Details Date Type Department Care Team (Late st Contact Info) Description 08/09/2019 Telephone [facility] [address] [place] [address] Venu Morocho MD [address] OF PLASTIC SURGERY [place], [place] [id number] Social History Tobacco Use Types Packs/Day Years Used Date Smoking Tobacco: Former Smokeless Tobacco: Never Alcohol Use Standard Drinks/Week Comments Yes 0 (1 standard drink = 0.6 oz pur e alcohol) Sex and Gender Information Value Date Recorded Sex Assigned at Not on file Legal Sex Male 6:17 PM WELD TECHNICIAN Gender Identity Not on file Sexual Orientation Not on file documented as of this encounter Miscellaneous Notes * Telephone Encounter - Coty Cherry - 08/09/2019 11:43 AM CDT [facility], cpt codes: 52143, 63978, 11588, 56574, and 99027 do not require prior authorization. Call reference# not given. Patient is scheduled for this procedure with Dr. Morocho on 09/16/19.Coty Rivera [phone] documented in this encounter Plan of Treatment Not on file documented as of this encounter Visit Diagnoses Not on filedocumented in this encounter Care Teams Student Support Counselor Relationship Specialty Start Date End Date Ha Moffett MD PCP - General 11/26/09 documented as of this encounter
--- OUTSIDE RECORDS SUMMARY | 2025-03-28 08:17 | XMS_ITS | Patient Health Record ---
Author Organization [facility] Address [address] [place], [place] [id number] Care Team Providers Care Weld Lay Out Worker Name Role Phone RohithSHAHID armendariz Unavailable Ha Moffett Unavailable Unavailable Reason For Referral [...] Insured Coverage Start Date Coverage End Date [facility] [address] [address] [place] [id number] ROBERT ANAYA Self - patient is the insured
--- OUTSIDE RECORDS SUMMARY | 2025-03-28 08:17 | XMS_ITS | Clinical Summary ---
Author Organization [facility] Main [facility] s Address [address] [place] [address] Care Team Providers Care Transportation Planning Engineer Name Role Phone Trini Dickey Primary Care [...] Type Department Care Team Description 03/13/2025 Telephone [facility] [address] [place] [address] Ally Altamirano, [facility] 03/11/2025 7:59 PM DIRECTOR FURNITURE - 03/11/2025 11:59 PM DIRECTOR FURNITURE Hospital Encounter [facility] [address] [place] [address] BEE (obstructive sleep apnea) Discharge Disposition: Discharge to home or self care 02/04/2025 Telephone [facility] Pulmonary [address] [address] Ashutosh Roland MD from Last 3 Months Medical History Medical History Date Comments Diabetes mellitus Social History Tobacco Use Types Packs/Day Years Used Date Smoking Tobacco: Former Cigarettes 0.5 24 S tarted: 02/15/1995 Smokeless Tobacco: Never Tobacco Cessation:Counseling Given: Not Answered Sex and Gender Information Value Date Recorded Sex Assigned at Not on file Legal Sex Male 6:25 AM DIRECTOR FURNITURE Gender Identity Not on file Sexual Orientation [...] Comments PSG (COMPLEX) Routine 03/12/2025 4:18 PM DIRECTOR FURNITURE BEE (obstructive sleep apnea) from Last 3 Months Results * PSG-Sleep Provider Use Only (03/12/2025 4:18 PM DIRECTOR FURNITURE) us Farhana Lynn NP SLEEP CENTER ORDERABLES Fin al Result Performing Organization Address City/State/[facility] Co de Phone Number [facility] SLEEP [facility]INE [address] [place] [address] from Last 3 Months Insurance [facility] [employer] SIG [id number] [place] [address] [place] CHO[place]F [place] Advance Directives For more information, please contact: [phone] Documents on File Type Date Recorded Patient Pastry Decorator Expl anation ADVANCE DIRECTIVE 03/09/2017 12:00 AM [facility] [employer]CIAL/MEDICAL Care Teams Transportation Planning Engineer Relationship Specialty Start Date End Date Trini Dickey PA [address] [place] [address] PCP - General Family Practice 10/31/24
--- OUTSIDE RECORDS SUMMARY | 2025-03-28 08:17 | XMS_ITS | Patient Health Record ---
Author Organization 1 OF [facility] Address [address] [facility] [address] [place] [address] Care Team Providers Care Territory Supervisor Name Role Phone Trini Dickey Primary Care Provider Elijaha aure MccoyaWenceslaoie Unavailable [phone] Allergies Allergen (clinical drug ingredient) Drug/Non Drug [...] disorder associated with type II diabetes mellitus ([id number]) Type 2 diabetes mellitus with other diabetic neurological complication (E11.49) Active confirmed Plan Of Treatment No Information Medical (General) History Medical History History ICD Code Diabetes, Asthma, Seizures Surgical History Surgery Date(Month/Year) left arm surgery
== END 2025-03-27 08:13 | disposition home or self-care (01) ==
PROVIDERS: Visit Provider Plastic Surgery
DX: M67.442 Ganglion, left hand (principal)
CPT/HCPCS: 88305